=== PATIENT | female | born 1970 | race African-American/Black ===

== ENCOUNTER 2017-02-09 22:49 | Emergency (ER) | payer BC, OTHER ==
[~2017-02-09] VITALS: Ht 170.2 cm; Wt 90.7 kg
[2017-02-09 23:10] VITALS: BP 148/91
== END 2017-02-10 00:21 | disposition home or self-care (01) ==
LOC: ER 22:49
DX: S93.402A Sprain of unspecified ligament of left ankle, initial encounter (principal); J45.909 Unspecified asthma, uncomplicated; X50.0XXA Overexertion from strenuous movement or load, initial encounter; Y93.89 Activity, other specified; Y99.8 Other external cause status; Y92.89 Other specified places as the place of occurrence of the external cause
CPT/HCPCS: 29515; 73610

== ENCOUNTER 2017-07-28 20:52 | Emergency (ER) | payer BC ==
[~2017-07-28] VITALS: Ht 170.2 cm; Wt 93.0 kg
[2017-07-28] MEDS ORDERED: IPRATROPIUM BROM 0.5 MG/2.5ML INH SOL NEB ONE (21:15)
[2017-07-28] MEDS ORDERED: ALBUTEROL SULF 2.5 MG/0.5ML(0.5%) NEB SOLN NEB ONE (21:15)
[2017-07-28] MEDS ORDERED: methylPREDNISolone SOD SUCC 125 MG/2 ML VL IV ONE (21:15)
[2017-07-28 21:44] LABS: Basophils # (auto) 0 uL; Basophils % (auto) 0.3 % (0.0-2.0); Eosinophils # (auto) 0 uL; Hemoglobin 12.3 g/dL (12.2-16.2); Mean Corpuscular Hemoglobin 23.8 pg (28.0-32.0); Monocytes # (auto) 0.6 uL; Nucleated Red Blood Cells % 0.2 %; White Blood Cell 4.9 10^3/uL (4.4-10.8)
[2017-07-28 21:45] LABS: Eosinophils % (auto) 0.3 % (0.0-7.0); Hematocrit 38.6 % (36.0-46.0); Lymphocytes # (auto) 1.3 uL; Lymphocytes % (auto) 25.5 % (10.0-50.0); Mean Corpuscular Hgb Conc. 31.9 g/dL (32.0-36.0); Mean Corpuscular Volume 74.4 fL (80.0-100.0); Monocytes % (auto) 11.7 % (0.0-12.0); Neutrophils # (auto) 3.1 uL; Neutrophils % (auto) 62.2 % (37.0-80.0); Platelet Count (auto) 205 10^3/uL (140-450); Red Blood Cells 5.19 10^6/uL (4.0-5.20); Red Cell Distribution Width 13.9 % (11.8-14.3)
[2017-07-28 22:05] LABS: Albumin 3.8 g/dL (3.4-5.0); BUN/Creatinine Ratio 15.8; Calcium 8.6 mg/dL (8.5-10.1); Magnesium 1.9 mg/dL (1.6-2.6); Potassium 3.4 mmol/L (3.5-5.1)
[2017-07-28 22:07] LABS: Bilirubin, Total 0.9 mg/dL (0.2-1.0); Total Protein 8.5 g/dL (6.4-8.2)
[2017-07-28] MEDS ORDERED: LEVOFLOXACIN 750MG 150 ML IV ONE (23:30)
[2017-07-28 23:36] LABS: Urine Bacteria MOD /hpf (None Seen); Urine Blood Negative /uL (Negative); Urine Mucus FEW (None Seen); Urine Specific Gravity 1.026 (1.001-1.035); Urine WBC 3 /hpf (0 - 5)
[2017-07-28 23:45] VITALS: BP 155/97
== END 2017-07-28 23:56 | disposition home or self-care (01) ==
LOC: ER 20:52
DX: J45.901 Unspecified asthma with (acute) exacerbation (principal); J20.9 Acute bronchitis, unspecified
CPT/HCPCS: 36415; 71020; 80053; 81001; 83735; 85025; 93005; 94640; 96374; 99285; J2930

== ENCOUNTER 2018-05-19 17:45 | Emergency (ER) | payer SELFPAY ==
[~2018-05-19] VITALS: Ht 170.2 cm; Wt 90.7 kg
[2018-05-19] MEDS ORDERED: ACETAMINOPHEN 325 MG TAB PO ONE ×2 (18:02→18:15)
[2018-05-19] MEDS ORDERED: IPRATROPIUM BROM 0.5 MG/2.5ML INH SOL NEB ONE (19:00)
[2018-05-19] MEDS ORDERED: methylPREDNISolone SOD SUCC 125 MG/2 ML VL IM ONE (19:00)
[2018-05-19] MEDS ORDERED: ALBUTEROL SULF 2.5 MG/0.5ML(0.5%) NEB SOLN NEB ONE (19:00)
[2018-05-19 20:00] VITALS: BP 105/64
== END 2018-05-19 22:50 | disposition home or self-care (01) ==
LOC: ER 17:50
DX: J40 Bronchitis, not specified as acute or chronic (principal); J45.909 Unspecified asthma, uncomplicated
CPT/HCPCS: 71046; 94640; 96372; 99284; J2930; J7611; J7644

== ENCOUNTER 2018-09-30 18:38 | Emergency (ER) | payer OTHER ==
[~2018-09-30] VITALS: Ht 170.2 cm; Wt 95.3 kg
[2018-09-30 18:46] VITALS: BP 139/77
[2018-09-30 19:39] LABS: Basophils # (auto) 0 uL; Basophils % (auto) 0.7 % (0.0-2.0); Eosinophils # (auto) 0.1 uL; Lymphocytes # (auto) 1.8 uL; Nucleated Red Blood Cells % 0.1 %
[2018-09-30 19:41] LABS: Eosinophils % (auto) 2.9 % (0.0-7.0); Hematocrit 37.9 % (36.0-46.0); Hemoglobin 12.1 g/dL (12.2-16.2); Lymphocytes % (auto) 37.6 % (10.0-50.0); Mean Corpuscular Hemoglobin 23.9 pg (28.0-32.0); Mean Corpuscular Hgb Conc. 31.9 g/dL (32.0-36.0); Mean Corpuscular Volume 74.9 fL (80.0-100.0); Monocytes # (auto) 0.3 uL; Monocytes % (auto) 6.3 % (0.0-12.0); Neutrophils # (auto) 2.5 uL; Neutrophils % (auto) 52.5 % (37.0-80.0); Platelet Count (auto) 249 10^3/uL (140-450); Red Blood Cells 5.06 10^6/uL (4.0-5.20); Red Cell Distribution Width 14.2 % (11.8-14.3); White Blood Cell 4.8 10^3/uL (4.4-10.8)
[2018-09-30 19:52] LABS: Albumin 3.6 g/dL (3.4-5.0); Calcium 8.7 mg/dL (8.5-10.1); Potassium 3.8 mmol/L (3.5-5.1)
[2018-09-30 19:54] LABS: BUN/Creatinine Ratio 16.1
[2018-09-30 19:57] LABS: Bilirubin, Total 0.7 mg/dL (0.2-1.0); Total Protein 7.7 g/dL (6.4-8.2)
== END 2018-09-30 21:45 | disposition left against medical advice (07) ==
LOC: ER 18:59
DX: R10.9 Unspecified abdominal pain (principal); Z53.21 Procedure and treatment not carried out due to patient leaving prior to being seen by health care provider
CPT/HCPCS: 36415; 80053; 85025

== ENCOUNTER 2018-12-08 13:00 | Emergency (ER) | payer MEDICAID, OTHER ==
[~2018-12-08] VITALS: Ht 170.2 cm; Wt 95.3 kg
[2018-12-08 13:54] VITALS: BP 153/84
[2018-12-08] MEDS ORDERED: KETOROLAC TROMETH 60MG/2ML VIAL IM ONE (14:00)
== END 2018-12-08 14:32 | disposition home or self-care (01) ==
LOC: ER 13:00
DX: M25.511 Pain in right shoulder (principal); J45.909 Unspecified asthma, uncomplicated; Z90.710 Acquired absence of both cervix and uterus; Z88.2 Allergy status to sulfonamides
CPT/HCPCS: 73030; 96372; 99283; J1885

== ENCOUNTER 2022-03-19 21:02 | Emergency (ER) | payer MEDICAID ==
[~2022-03-19] VITALS: Ht 170.2 cm; Wt 102.3 kg
[2022-03-19 23:27] VITALS: BP 150/80
[2022-03-20] MEDS ORDERED: HYDR-4902 PO (01:41)
[2022-03-20] MEDS ORDERED: ONDA-144 PO (01:41)
== END 2022-03-20 01:49 | disposition home or self-care (01) ==
LOC: ER 21:02
DX: S82.831A Other fracture of upper and lower end of right fibula, initial encounter for closed fracture (principal); I10 Essential (primary) hypertension; E78.5 Hyperlipidemia, unspecified; J45.909 Unspecified asthma, uncomplicated; Z79.899 Other long term (current) drug therapy; Z88.2 Allergy status to sulfonamides; X58.XXXA Exposure to other specified factors, initial encounter; Y93.89 Activity, other specified; Y92.89 Other specified places as the place of occurrence of the external cause; Y99.8 Other external cause status
CPT/HCPCS: 29515; 73600

== ENCOUNTER → 2023-07-23 | Outpatient (CLI) | payer MEDICAID ==
[~2023-07-23] VITALS: Ht 170.2 cm; Wt 90.7 kg
[~2023-07-23] MED LIST: HYDR-4902 PO; ONDA-144 PO; REGADENOSON 0.4 MG/5 ML SYRG IV ONE
== END | disposition home or self-care (01) ==
LOC: XYW 07:21
PROVIDERS: ATTEND Specialist
DX: R00.2 Palpitations (principal); R07.9 Chest pain, unspecified; I10 Essential (primary) hypertension; E78.5 Hyperlipidemia, unspecified
CPT/HCPCS: 78452; 93017; A9500; J2785